=== PATIENT | male | born 1975 | race Caucasian/White ===

== ENCOUNTER 2021-07-20 23:42 | Emergency (ER) | payer MEDICAID ==
[~2021-07-20] VITALS: Ht 175.3 cm; Wt 82.0 kg
[2021-07-21] MEDS ORDERED: ONDANSETRON HCL 4MG/2ML INJ IV STA (00:46)
[2021-07-21] MEDS ORDERED: MORPHINE SULFATE 4 MG/ML CPJ (NOT FOR IM USE) IV STA (00:46)
[2021-07-21] MEDS ORDERED: SODIUM CHLORIDE 0.9% 1,000 ML IV ONE (01:00)
[2021-07-21] MEDS ORDERED: ACETAMINOPHEN 325MG TABLET PO ONE (01:15)
[2021-07-21] MEDS ORDERED: FENTANYL CITRATE/PF 50MCG/ML 2ML VIAL IV ONE (06:30)
[2021-07-21 06:54] LABS: BASOPHILS % 0.4 % (0.0-2.0); EOSINOPHILS % 0.9 % (0.0-5.0); HEMATOCRIT. 44.9 % (42.0-52.0); HEMOGLOBIN. 15.1 g/dL (14.0-18.0); LYMPHOCYTES % 9.3 % (20.0-50.0); MEAN CORPUSCULAR VOLUME 89.3 fL (80.0-94.0); MEAN PLATELET VOLUME 7.5 fl (7.4-10.4); MONOCYTES % 9.7 % (2.0-8.0); NEUTROPHILS % 79.7 % (40.0-76.0); PLATELET 174 x1000/uL (130-400); RED BLOOD CELL COUNT 5.03 mill/uL (4.7-6.1); RED CELL DISTRIBUTION WIDTH 16.3 % (11.6-14.6)
[2021-07-21 07:08] LABS: CHLORIDE 100 mEq/L (98-107)
[2021-07-21 07:15] LABS: ETHANOL BLOOD < 10 mg/dL
[2021-07-21] MEDS ORDERED: HYDRALAZINE 20MG/ML VIAL IV ONE (18:30)
[2021-07-21] MEDS ORDERED: MORPHINE SULFATE 4 MG/ML CPJ (NOT FOR IM USE) IV ONE (18:30)
[2021-07-21] MEDS ORDERED: ONDANSETRON HCL 4MG/2ML INJ IV ONE (18:30)
[2021-07-21 20:07] VITALS: BP 159/96
== END 2021-07-21 20:44 | disposition short-term general hospital (02) ==
LOC: ER 23:42
DX: S02.842A Fracture of lateral orbital wall, left side, initial encounter for closed fracture (principal); S02.32XA Fracture of orbital floor, left side, initial encounter for closed fracture; S02.40DA Maxillary fracture, left side, initial encounter for closed fracture; S02.40CA Maxillary fracture, right side, initial encounter for closed fracture; Z20.822 Contact with and (suspected) exposure to COVID-19; Y04.2XXA Assault by strike against or bumped into by another person, initial encounter; Y93.89 Activity, other specified; Y92.488 Other paved roadways as the place of occurrence of the external cause
CPT/HCPCS: 36415; 70450; 70486; 71045; 72125; 80053; 80320; 85025; 86850; 86900; 86901; 87426; 96374; 96375; 99291; C9803; J0360; J2270; J2405; J3010; J7030; G0480